=== PATIENT | female | born 1950 | race Caucasian/White ===

== ENCOUNTER 2023-11-23 07:16 | Day surgery (SDC) | payer MEDICARE, SELFPAY ==
[2023-11-19 13:05] VITALS: BMI 18.9
--- NOTE | 2023-11-22 09:34 | P.CONAN_ITS ---
Documented by User: Melanie Ashford NP 11/22/23 09:34 HPI - Anesthesia Eval Consult details Narrative: 73yo F for Colonoscopy PMFSH Past Medical History Medical History Tendonitis Osteopenia IBS (irritable bowel syndrome) Fibromyalgia Depression Anxiety Osteoarthritis Surgical History Surgical History Hx of colonoscopy Hx of hammer toe correction Hx of tonsillectomy History of right hip replacement (~2015) Social History Social History Patient Tobacco Use Status: Former Tobacco user Use of substances other than those prescribed or required for medical reasons: No Have you been hit, kicked, punched, or otherwise hurt by someone within the past year? If so, by whom?: No Are you DNR?: No Advance Directives: No Advance Directives Information Provided: Yes Recently lost weight without trying: No Meds Allergies Allergy/AdvReac Type Severity Reaction Status Date / Time No Known Allergies Allergy Verified 11/22/23 09:34 Home Medications ?Medication ?Instructions ?Recorded ?Confirmed ?Last Taken ?Type [place] 3 11/19/23 Unknown History aspirin 81 mg chewable tablet 81 mg PO DAILY 11/19/23 11/19/23 Unknown History cetirizine 5 mg-pseudoephedrine ER 1 tab PO DAILY PRN Allergy Symptoms 11/19/23 11/19/23 Unknown History 120 mg tablet,extended release,12hr (Zyrtec-D) citalopram 10 mg tablet 10 mg PO DAILY 11/19/23 11/19/23 Unknown History cranberry 405 mg capsule 405 mg PO DAILY 11/19/23 11/19/23 Unknown History estradiol 0.01% (0.1 mg/gram) 1 g vaginal 3XW 11/19/23 11/19/23 Unknown History vaginal cream multivitamin 1 tab PO DAILY 11/19/23 11/19/23 Unknown History raloxifene 60 mg tablet 60 mg PO DAILY 11/19/23 11/19/23 Unknown History trazodone 100 mg tablet 100 mg PO BEDTIME PRN Insomnia 11/19/23 11/19/23 Unknown History vitamin B complex 1 tab PO DAILY 11/19/23 11/19/23 Unknown History Exam Height,Weight and Vital Signs: Height 5 ft 8.5 in Weight 57.323 kg Assessment and Plan Assessment Anesthesia Assessment: Chart Reviewed Documented by User: Catalina Reynolds MD 11/23/23 08:31 [facility], [facility] Past Medical History Medical History Tendonitis Osteopenia IBS (irritable bowel syndrome) Fibromyalgia Depression Anxiety Osteoarthritis Family History Family history of problems with anesthesia: No Surgical History Surgical History Hx of colonoscopy Hx of hammer toe correction Hx of tonsillectomy History of right hip replacement (~2015) History of Problems with Anesthesia: No Social History Social History Patient Tobacco Use Status: Former Tobacco user Use of substances other than those prescribed or required for medical reasons: No Have you been hit, kicked, punched, or otherwise hurt by someone within the past year? If so, by whom?: No Are you DNR?: No Advance Directives: No Advance Directives Information Provided: Yes Recently lost weight without trying: No Meds Allergies Allergy/AdvReac Type Severity Reaction Status Date / Time No Known Allergies Allergy Verified 11/22/23 09:34 Home Medications ?Medication ?Instructions ?Recorded ?Confirmed ?Last Taken ?Type [place] 3 11/19/23 Unknown History aspirin 81 mg chewable tablet 81 mg PO DAILY 11/19/23 11/19/23 Unknown History cetirizine 5 mg-pseudoephedrine ER 1 tab PO DAILY PRN Allergy Symptoms 11/19/23 11/19/23 Unknown History 120 mg tablet,extended release,12hr (Zyrtec-D) citalopram 10 mg tablet 10 mg PO DAILY 11/19/23 11/19/23 Unknown History cranberry 405 mg capsule 405 mg PO DAILY 11/19/23 11/19/23 Unknown History estradiol 0.01% (0.1 mg/gram) 1 g vaginal 3XW 11/19/23 11/19/23 Unknown History vaginal cream multivitamin 1 tab PO DAILY 11/19/23 11/19/23 Unknown History raloxifene 60 mg tablet 60 mg PO DAILY 11/19/23 11/19/23 Unknown History trazodone 100 mg tablet 100 mg PO BEDTIME PRN Insomnia 11/19/23 11/19/23 Unknown History vitamin B complex 1 tab PO DAILY 11/19/23 11/19/23 Unknown History Exam Airway Mallampati Class: II TM Dist: >3cm Neck ROM: Full Heart: rrr Lungs: cta Assessment and Plan Assessment Anesthesia Assessment: Anesthesia Plan Discussed Final Anesthetic Review Family History of Problems with Anesthesia: No History of Problems with Anesthesia: No NPO: Yes ASA Class: II Final Preanesthetic Review: No Changes in Pt Med Stat, Meds/Allgs Chart Reviewed, Consent Obtained/Reviewed and Anes Risks/Benef Reviewed Patient Risk: Low Procedure Risk: Low Anesthetic Plan Anesthetic Plan: MAC: Disposition: Standard PACU
[2023-11-23 07:27] VITALS: BP 186/88; PULSE 83; RESP 16; TEMP 36.8; O2SAT 99; BMI 19.2
[2023-11-23] MEDS: Lactated Ringers 1,000 ML 100 ML IVCONT (07:41)
--- NOTE | 2023-11-23 08:58 | MHC.SHP ---
Pre-Procedural Eval Section A - 24 Hr Update-Section A only Date of Service: 11/23/23 Section B - Complete if H&P > 30 days Chief Complaint: screening Details of Present Illness: see H&P no changes Relevant Family History (Specify if Yes): No Relevant Social History: None Present Medications: see Short Stay Collaborative assessment Medical History: No relevant PMH History of Previous Operations: No relevant previous surgery Allergies: Allergies Allergy/AdvReac Type Severity Reaction Status Date / Time No Known Allergies Allergy Verified 11/22/23 09:34 Review of Systems Sugical H&P ROS: Negative: Constitution, Cardiovascular, Respiratory, Neurological, Psychiatric, Hem-Onc, Allergic/Immunologic, Gastrointestinal, Genitourinary, Musculoskeletal, Integumentary, Endocrine and Eyes/Ears/Nose/Throat Exam Surgical H&P Exam: Normal: HEENT, Normal: Heart, Normal: Lungs, Normal: Extremities, Normal: Abdomen, Normal: Skin and Normal: Neurological Plan Diagnosis/Plan: Unchanged I have reviewed the history and physical and performed a pertinent physical examination on my patient. No changes have occurred unless specified. Time Spent With Patient Time: Total time managing care of this patient today ____ minutes.
[2023-11-23 09:44] VITALS: BP 123/49; PULSE 72; RESP 16; TEMP 36.1; O2SAT 99
[2023-11-23 09:59] VITALS: BP 147/52; PULSE 67; RESP 16; TEMP 36.1; O2SAT 99
--- NOTE | 2023-11-23 09:59 | OP_ITS ---
DATE OF SERVICE: 11/23/2023 SURGEON: Jose Maier MD INDICATIONS: Colon cancer screening. PREOPERATIVE DIAGNOSIS: POSTOPERATIVE DIAGNOSIS: PROCEDURE PERFORMED: Colonoscopy to the cecum. ESTIMATED BLOOD LOSS: COMPLICATIONS: ANESTHESIA: Monitored anesthesia care. ASSISTANTS: SPECIMENS: DESCRIPTION OF PROCEDURE: A history and physical was performed. The risks and benefits of the procedure were explained to the patient and informed consent was obtained. The patient was placed in the left lateral decubitus position. A digital rectal exam was performed and was found to be normal. The Olympus pediatric video colonoscope was introduced into the rectum and advanced to the cecum. The cecum was identified by transillumination, palpation, and identification of ileocecal valve. Examination was performed and the scope was removed. She tolerated the procedure well and was returned to recovery area in stable condition. FINDINGS: The terminal ileum was not examined. The visualized colonic mucosa was normal. The quality of the prep was good. No polyps were identified. There was mild sigmoid diverticulosis. Retroflexed examination was normal. IMPRESSION: Normal colonoscopy. RECOMMENDATIONS: 1. Follow up as needed. 2. Repeat colonoscopy is recommended in 10 years for average-risk individuals. This is optional after age 75. MD CHARLES Victoria/TURNER / [id number]
== END 2023-11-23 10:48 | disposition home or self-care (01) ==
PROVIDERS: Visit Provider Internal Medicine Gastroenterology
PROC: 0DJD8ZZ Inspection of Lower Intestinal Tract, Via Natural or Artificial Opening Endoscopic (ICD-10-PCS; CPT 45378; principal; 2023-11-23 08:20)
DX: Z12.11 Encounter for screening for malignant neoplasm of colon (principal); Z83.719 Family history of colon polyps, unspecified; K57.30 Diverticulosis of large intestine without perforation or abscess without bleeding; K58.0 Irritable bowel syndrome with diarrhea; M79.7 Fibromyalgia; M19.90 Unspecified osteoarthritis, unspecified site; M85.80 Other specified disorders of bone density and structure, unspecified site; M77.9 Enthesopathy, unspecified; F41.8 Other specified anxiety disorders; Z96.641 Presence of right artificial hip joint; Z79.82 Long term (current) use of aspirin; Z79.899 Other long term (current) drug therapy; Z79.890 Hormone replacement therapy
CPT/HCPCS: G0121; J2003; J2704